=== PATIENT | male | born 1995 | race Caucasian/White ===

== ENCOUNTER 2021-03-19 14:02 | Emergency (ER) | payer MEDICAID, SELFPAY ==
[2021-03-19 14:03] VITALS: BP 190/101; PULSE 85; RESP 16; TEMP 36.2; O2SAT 97; BMI 46.0
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
[2021-03-19 15:45] VITALS: BP 148/84; PULSE 74; RESP 18
== END 2021-03-19 15:55 | disposition home or self-care (01) ==
PROVIDERS: Emergency Provider Emergency Medicine
DX: S06.0X1A Concussion with loss of consciousness of 30 minutes or less, initial encounter (principal); S40.012A Contusion of left shoulder, initial encounter; F17.200 Nicotine dependence, unspecified, uncomplicated; V89.0XXA Person injured in unspecified motor-vehicle accident, nontraffic, initial encounter
CPT/HCPCS: 70450; 73030; 99282

== ENCOUNTER 2024-03-26 15:03 | Emergency (ER) | payer MEDICAID, SELFPAY ==
[2024-03-26 15:05] VITALS: BP 147/104; PULSE 85; RESP 18; TEMP 35.8; O2SAT 97; BMI 47.1
--- NOTE | 2024-03-26 15:20 | CT_ITS ---
INDICATION: hernia EXAMINATION: CT ABDOMEN AND PELVIS WITHOUT CONTRAST - CT Abdomen And Pelvis W/O Contrast Injection TECHNIQUE: Helically acquired images were obtained of the abdomen and pelvis without oral or IV contrast. A radiation dose optimization technique was used for this scan. IV Contrast dosage and agent: None. Oral contrast: None. COMPARISON: 01/18/2016 FINDINGS: LOWER CHEST: Lung bases are clear. No cardiomegaly or pericardial effusion. LIVER: Diffuse low-attenuation consistent with steatosis. Enlargement to 21 cm. No concerning focal mass. GALLBLADDER AND BILIARY TREE: No calcified gallstones. No gallbladder distension or wall edema. No intra- or extrahepatic biliary ductal dilation. PANCREAS: No focal cystic or solid mass. SPLEEN: Splenomegaly. ADRENAL GLANDS: No nodules. KIDNEYS AND URETERS: No nephrolithiasis or hydronephrosis. PERITONEUM: No ascites or free air. BOWEL: Normal appendix. No stomach or bowel distension. No focal inflammatory change. LYMPH NODES: No enlarged mesenteric or retroperitoneal lymph nodes. VESSELS: Aorta is non-dilated. URINARY BLADDER: Unremarkable. REPRODUCTIVE ORGANS: No pelvic masses. ABDOMINAL WALL: Moderate umbilical hernia containing fat and small bowel loop without strangulation or proximal obstruction. BONES: Unremarkable. CT/Abdomen/Pelvis without Cont IMPRESSION: No acute findings in the abdomen or pelvis. Moderate umbilical hernia containing both fat and small bowel loop without obstruction. Hepatosplenomegaly. Electronically Signed: Artemio Duke MD at 16:38 EDT ,
--- NOTE | 2024-03-26 15:23 | EDS_ITS ---
HPI History of Present Illness Chief Complaint: Abd Pain Detail of Chief Complaint: Umbilical hernia Informant: patient Narrative Narrative: Patient presents secondary to pain to his umbilical hernia. He was diagnosed in August of last year. He is following with a surgeon at [facility], Dr. Culver, and is scheduled to have surgery on May 12. Patient states he was just seen in the office yesterday. This morning he pushed a table out of the way so his children can see the floor and noted pain to the area. He has not been able to get it to reduce since that time. He has been using ice packs to the area. [facility] Medical History (Updated 03/26/24 @ 16:[address] Lupis Serrano MD) Seasonal allergies Diabetes ADHD Home Medications ?Medication ?Instructions ?Recorded ?Last Taken ?Type albuterol sulfate 90 mcg/actuation 2 puff inhalation Q4H PRN PRN 04/21/17 Unknown Rx aerosol inhaler (Ventolin HFA) Shortness of breath/wheezing ##1 Methylphenidate Hcl [Concerta] 18 mg PO DAILY 10/07/17 Unknown History lurasidone 20 mg tablet (Latuda) 20 mg PO BID 10/07/17 Unknown History oxcarbazepine 150 mg tablet 150 mg PO BID 10/07/17 Unknown History promethazine 25 mg tablet 25 mg PO Q4H PRN PRN Nausea #20 10/07/17 Unknown Rx tabs naproxen 500 mg tablet 500 mg PO BID #14 tabs 03/19/21 Unknown Rx ondansetron 4 mg disintegrating 4 mg PO Q8H PRN PRN Nausea #10 tabs 03/19/21 Unknown Rx tablet Allergy/AdvReac Type Severity Reaction Status Date / Time acetaminophen (From Percocet) Allergy Hives Verified 03/26/24 15:05 amoxicillin Allergy Hives Verified 03/19/21 14:05 oxycodone Allergy Hives Verified 03/26/24 15:05 oxycodone HCl (From Percocet) Allergy Hives Verified 03/26/24 15:05 Penicillins Allergy Hives Verified 03/26/24 15:05 Surgical History History of left knee surgery Social History household members: none Smoking Status: Current every day smoker tobacco type: smokeless tobacco alcohol intake: current alcohol intake frequency: other substance use type: does not use ROS ROS ED Constitutional Constitutional ED: Denies chills or fever(s) Eyes Eyes: Denies change in vision ENT ENT ED: Denies rhinorrhea or sore throat Cardiovascular Cardiovascular: Denies chest pain or palpitations Respiratory/Chest Respiratory/Chest: Denies cough or dyspnea Gastrointestinal Gastrointestinal: Reports abdominal pain; Denies diarrhea, nausea or vomiting Musculoskeletal Musculoskeletal: Denies back pain or extremity pain Integumentary Denies Abrasions or rash Neurologic Neurologic: Denies headache(s) or weakness Psychiatric Psychiatric: Denies anxiety or depression Allergic/Immunologic Allergic/Immunologic ED: Denies lip swelling or urticaria EXAM Physical Exam Const Vital Signs: 03/26/24 15:05 03/26/24 16:01 Temperature 96.4 F L Temperature Source Temporal Pulse Rate 85 Respiratory Rate 18 Blood Pressure 147/104 H 125/80 H Blood Pressure Mean 118 93 Pulse Ox 97 93 Oxygen Delivery Method Room Air Positive well nourished and well developed General Appearance ED: well developed HEENT Reports moist mucous membranes Eyes EOMs intact bilaterally Chest Wall inspection of chest normal and palpation of chest normal Resp normal respiratory effort and clear to auscultation bilaterally Cardio regular rate and regular rhythm GI GI Narrative: Abdomen soft with a periumbilical hernia palpated just superior to the umbil icus. Area is painful and firm. Extremity normal to inspection Neuro oriented x3 and no sensory deficits noted Motor Exam: strength 5/5 throughout Psych mental status grossly normal Skin no rashes or lesions noted MDM MDM MDM Narrative Medical decision making narrative: IV line established. Patient given morphine and Zofran for pain. Labwork obta ined to evaluate for leukocytosis, anemia, and electrolyte derangement. CT flank obtained to evaluate the hernia. History & Record Review Discussion w/independent historian: Patient Lab Data Attestation: I reviewed the patient's lab results. Labs: Laboratory Results - last 24 hr 03/26/24 15:25 WBC 8.4 RBC 5.60 Hgb 15.1 Hct 46.1 MCV 82.3 MCH 27.0 MCHC 32.8 RDW Std Deviation 40.6 RDW Coeff of Janneth 13.7 Plt Count 265 MPV 9.7 Immature Gran % (Auto) 0.200 Neut % (Auto) 75.8 H Lymph % (Auto) 16.8 L [place] % (Auto) 4.5 Eos % (Auto) 2.3 Baso % (Auto) 0.4 Absolute Neuts (auto) 6.4 Absolute Lymphs (auto) 1.41 Nucleated RBC % 0 Sodium 139 Potassium 3.7 Chloride 104 Carbon Dioxide 26.0 Anion Gap 9 BUN 12 Creatinine 0.87 Estim Creat Clear Calc 192.48 Est GFR (MDRD) Af Amer 131 Est GFR (MDRD) Non-Af 108 BUN/Creatinine Ratio 13.7 Glucose 236 H Calcium 9.3 Radiography Diagnostic Testing: Clinical Impression(s) from Imaging Studies Abdomen/Pelvis CT 03/26/24 15:20 IMPRESSION: No acute findings in the abdomen or pelvis. Moderate umbilical hernia containing both fat and small bowel loop without obstruction. Hepatosplenomegaly. Electronically Signed: Artemio Duke MD at 16:38 EDT Reading Location ID and State: [facility] / [place] Tel , Service support , Treatment and Re-Evaluation :: After patient was given morphine and Zofran he was sent to CT. I was able to review his CT scan which did reveal hernia just superior to the umbilicus. I was able to go back and provide direct pressure and able to get the hernia to reduce. Patient's pain is significant improved at this time. Lab work is reviewed and indicates normal white count 8.4. 75% neutrophils noted. Chemistries are unremarkable. Glucose is 236. CT report returns with evidence of a moderate umbilical hernia containing both fat and small bowel loop without obstruction. On repeat exam patient continues to have no significant abdominal pain after reduction of the hernia. He will be given an abdominal binder. I will give him the local surgical information for follow-up if he wishes to be seen here, but otherwise will follow-up with his surgeon in [place] as previously planned. He was given return instructions. Discharge Plan Triage Chief Complaint: Abd Pain ED Provider: Lupis Serrano Dx/Rx/DC Orders Clinical Impression: Hernia, umbilical Instructions: ED Hernia (Adult) Prescriptions: No Action albuterol sulfate [Ventolin HFA] 1 INHALER inhaler 2 puff inhalation Q4H PRN PRN (Reason: Shortness of breath/wheezing) Qty: 1 3RF Rx Instructions: Use spacer with inhaler oxcarbazepine 150 MG tablet 150 mg PO BID lurasidone [Latuda] 20 MG tablet 20 mg PO BID Methylphenidate Hcl [Concerta] 18 MG Tab.Er.24 18 mg PO DAILY promethazine 25 MG tablet 25 mg PO Q4H PRN PRN (Reason: Nausea) Qty: 20 0RF ondansetron [ondansetron] 4 MG tablet 4 mg PO Q8H PRN PRN (Reason: Nausea) Qty: 10 0RF naproxen 500 MG tablet 500 mg PO BID Qty: 14 0RF Primary Care Provider: EVA SHAFER Referrals: [facility] [Other] Peter Lopez MD [[facility] Staff - Active Staff] - As Needed Activity Restrictions/Additional Instructions: Information for local surgery evaluation has been provided for you as needed. Please follow-up with your surgeon in [place] or reach out to the local surgeons for follow-up as needed. Print Language: Albanian Disposition Disposition: Home, Self Care
[2024-03-26] MEDS: Ondansetron 4 MG/2 ML Vial IV (15:30)
[2024-03-26] MEDS: 0.9% Normal Saline (1000mL) 1,000 ML 150 ML IV (15:30)
[2024-03-26] MEDS: Morphine 4 MG/ML Syringe IV (15:30)
[2024-03-26 15:43] LABS: Absolute Lymphocyte Count 1.41 X10^3/uL (0.83-4.51); Absolute Neutrophil Count 6.4 X10^3/uL (2.0-7.7); Basophil# 0.03 X10^3/uL; Basophil% 0.4 % (0-1); Eosinophil# 0.19 X10^3/uL; Eosinophils% 2.3 % (0-5); Hematocrit 46.1 % (40-54); Hemoglobin 15.1 g/dL (13.0-16.5); Lymphocyte # 1.41 X10^3/ul (0.83-4.51); Lymphocyte % 16.8 % (19-41); Mean Corp Hgb Conc 32.8 g/dL (32-36); Mean Corpuscular Volume 82.3 fL (80-94); Mean Platelet Vol. 9.7 fl (6.2-12.0); Monocyte# 0.38 X10^3/uL; Monocyte% 4.5 % (0-10); NRBC Flagged by Analyzer 0 % (0-5); Neutrophil # 6.35 X10^3/uL (2.7-7.7); Neutrophil % 75.8 % (47-70); Platelet Count 265 K/mm3 (150-450); RBC Distribution Width CV 13.7 % (11.6-14.6); RBC Distribution Width SD 40.6 fl (35.1-43.9); White Blood Count 8.4 K/mm3 (4.4-11.0)
[2024-03-26 15:57] LABS: Anion Gap 9 (5-15); BUN 12 mg/dL (7-18); BUN/Creat Ratio 13.7 RATIO (10-20); Calcium,Total 9.3 mg/dL (8.5-10.1); Chloride 104 mmol/L (98-107); Creatinine, Serum 0.87 mg/dL (0.70-1.30); EST Glomerular Filtration Rate 108 mL/min (>60); Est Glom Filt Rate - Afr Amer 131 mL/min (>60); Estimated Creatinine Clearance 192.48 ml/min; Glucose 236 mg/dL (74-106); Potassium 3.7 mmol/L (3.5-5.1); Sodium Level 139 mmol/L (136-145)
[2024-03-26 16:01] VITALS: BP 125/80; O2SAT 93
[2024-03-26 16:56] VITALS: BP 121/60; PULSE 90; RESP 18; TEMP 36.6; O2SAT 97
== END 2024-03-26 16:57 | disposition home or self-care (01) ==
PROVIDERS: Emergency Provider Emergency Medicine; Visit Provider Emergency Medicine
DX: K42.9 Umbilical hernia without obstruction or gangrene (principal); E11.9 Type 2 diabetes mellitus without complications; F17.220 Nicotine dependence, chewing tobacco, uncomplicated
CPT/HCPCS: 74176; 80048; 85025; 96374; 96375; 96376; 99282; J7030; A4216; J2405

== ENCOUNTER 2024-04-11 19:56 | Emergency (ER) | payer MEDICAID, SELFPAY ==
[2024-04-11 19:57] VITALS: BP 147/83; PULSE 119; RESP 18; TEMP 37.4; O2SAT 99; BMI 47.2
--- NOTE | 2024-04-11 20:13 | EX.ED.DYSGE1 ---
HPI History of Present Illness Chief Complaint: Cold Sx Informant: patient Narrative Narrative: 28-year-old male presenting to the emergency room for the evaluation of fever and cough. Patient states over the past several days he has had cough with some mild dyspnea, fever, nausea without vomiting, mild rhinorrhea and myalgias. Has been taking Tylenol and believes he is finally got his fever to break. Last dose of Tylenol was about 1 hour ago. He has a history of asthma uses albuterol as needed. He is also diabetic on metformin and Jardiance. He is scheduled for hernia surgery in the middle of April. He denies any rashes. Daughter sick with the same. [facility] Medical History Seasonal allergies Diabetes ADHD Home Medications ?Medication ?Instructions ?Recorded ?Last Taken ?Type albuterol sulfate 90 mcg/actuation 2 puff inhalation Q4H PRN PRN 04/21/17 Unknown Rx aerosol inhaler (Ventolin HFA) Shortness of breath/wheezing ##1 albuterol sulfate 90 mcg/actuation 2 puff inhalation Q4H PRN PRN 04/11/24 Unknown Rx aerosol inhaler (Ventolin HFA) Wheezing ##1 doxycycline monohydrate 100 mg 100 mg PO BID #20 CAPSULES 04/11/24 Unknown Rx capsule empagliflozin 10 mg tablet 10 mg PO DAILY 04/11/24 Unknown History (Jardiance) metformin 1,000 mg tablet 1,000 mg PO BID 04/11/24 Unknown History Allergy/AdvReac Type Severity Reaction Status Date / Time acetaminophen (From Percocet) Allergy Hives Verified 04/11/24 19:58 amoxicillin Allergy Hives Verified 04/11/24 19:58 oxycodone Allergy Hives Verified 04/11/24 19:58 oxycodone HCl (From Percocet) Allergy Hives Verified 04/11/24 19:58 Penicillins Allergy Hives Verified 04/11/24 19:58 Surgical History History of left knee surgery Social History household members: none Smoking Status: Current every day smoker tobacco type: smokeless tobacco alcohol intake: current alcohol intake frequency: other substance use type: does not use ROS ROS ED Constitutional Constitutional ED: Reports chills, fever(s) and sweats; Denies weight loss Eyes Eyes: Denies change in vision or diplopia ENT ENT ED: Reports rhinorrhea; Denies ear pain or sore throat Cardiovascular Cardiovascular: Denies chest pain, orthopnea, palpitations or racing heartbeat Respiratory/Chest Respiratory/Chest: Reports cough and dyspnea on exertion; Denies dyspnea or orthopnea Gastrointestinal Gastrointestinal: Reports nausea; Denies abdominal pain, diarrhea or vomiting Genitourinary Genitourinary ED: Denies dysuria, hematuria or urinary frequency Musculoskeletal Musculoskeletal: Reports myalgias; Denies arthralgias or neck pain Integumentary Denies abscess or rash Neurologic Neurologic: Denies headache(s) or weakness Psychiatric Psychiatric: Denies anxiety, depression, suicidal ideation or suicidal thoughts Endocrine Endocrinology: Denies polydipsia, polyphagia or polyuria Allergic/Immunologic Allergic/Immunologic ED: Denies mouth swelling, tongue swelling or urticaria EXAM Physical Exam Const Vital Signs: 04/11/24 19:57 04/11/24 20:04 Temperature 99.4 F H Temperature Source Oral Pulse Rate 119 H Respiratory Rate 18 Respiratory Effort Normal Non-Labored Blood Pressure 147/83 H Blood Pressure Mean 104 Pulse Ox 99 Oxygen Delivery Method Room Air Positive well nourished, well developed and obese General Appearance ED: well developed Nutritional Appearance: obese HEENT Reports normocephalic, head/scalp atraumatic and moist mucous membranes HEENT Narrative: Mild turbinate edema Eyes PERRL and EOMs intact bilaterally Neck no lymphadenopathy, supple and no JVD Resp normal respiratory effort and clear to auscultation bilaterally Resp Narrative: Dry cough Cardio regular rate, regular rhythm and no murmurs Rate: tachycardic GI normal to inspection, nondistended, normoactive bowel sounds and non-tender GI Narrative: Umbilical hernia does not palpate incarcerated Palpation: soft Back/Spine no CVA tenderness and normal ROM Extremity normal to inspection General Extremety ED: Negative for edema General Extremity: Negative for edema Neuro oriented x3 and CN's II-XII intact bilaterally Sensorium / Orientation: alert Motor Exam: strength 5/5 throughout Psych mental status grossly normal Mood & Affect: Negative for depressed or tearful Skin no rashes or lesions noted and no wounds MDM MDM MDM Narrative Medical decision making narrative: Differential diagnosis includes but not limited to viral syndrome pneumonia empyema bronchitis with bronchospasm sepsis Patient clinically appears well. He is not requiring supplemental oxygen. He is tolerating oral fluids. Lung sounds are clear and equal. COVID influenza and RSV swabs are negative. His daughter who is also ill about the same time he is also tested negative. My independent interpretation of the chest x-ray is possible patchy infiltrate right upper lobe. Radiology does feel this could be consistent with pneumonia. Given his symptomology history of asthma we will place him on doxycycline. Have him be aggressive with his albuterol and he will need a new inhaler. I will have him follow-up with primary care if not improving return if worsening or concerns History & Record Review Discussion w/independent historian: Patient Radiography Diagnostic Testing: Clinical Impression(s) from Imaging Studies Chest X-Ray 04/11/24 20:20 IMPRESSION: Right upper lobe infiltrate consistent with pneumonia. Electronically Signed: Baylee Stone MD at 20:48 EDT , Discharge Plan Triage Chief Complaint: Cold Sx ED Provider: Floyd Lynne Dx/Rx/DC Orders Clinical Impression: Acute febrile illness, Pneumonia Instructions: ED Pneumonia (Adult) Prescriptions: New doxycycline monohydrate 100 mg capsule 100 mg PO BID Qty: 20 0RF albuterol sulfate [Ventolin HFA] 90 mcg/actuation HFA aerosol inhaler 2 puff inhalation Q4H PRN PRN (Reason: Wheezing) Qty: 1 0RF No Action albuterol sulfate [Ventolin HFA] 1 INHALER inhaler 2 puff inhalation Q4H PRN PRN (Reason: Shortness of breath/wheezing) Qty: 1 3RF Rx Instructions: Use spacer with inhaler metformin 1,000 mg tablet 1,000 mg PO BID Jardiance 10 mg tablet 10 mg PO DAILY Primary Care Provider: EVA HENSON Referrals: EVA HENSON [Other] - 1 Week if not improving NOT,DEFINED [Non-Staff] - Print Language: Nepali Disposition Disposition: Home, Self Care
--- NOTE | 2024-04-11 20:20 | RAD_ITS ---
INDICATION: cough and fever EXAMINATION/TECHNIQUE: X-RAY - XR Chest 2 Views COMPARISON: 07/23/2013 FINDINGS: LINES/DEVICES: None. LUNGS: Patchy infiltrate right upper lobe. No consolidation. No pneumothorax. MEDIASTINUM: Unremarkable. CARDIAC SILHOUETTE: Not enlarged. BONES AND SOFT TISSUES: No acute abnormalities. RAD/Chest PA and Lateral IMPRESSION: Right upper lobe infiltrate consistent with pneumonia. Electronically Signed: Baylee Stone MD at 20:48 EDT ,
[2024-04-11] MEDS: Doxycycline 100 MG CAPSULE PO (21:20)
[2024-04-11 21:29] VITALS: BP 119/78; PULSE 95; RESP 18; TEMP 37.2; O2SAT 97
== END 2024-04-11 21:30 | disposition home or self-care (01) ==
PROVIDERS: Emergency Provider Emergency Medicine; Visit Provider Emergency Medicine
DX: J18.9 Pneumonia, unspecified organism (principal); E11.9 Type 2 diabetes mellitus without complications; Z79.84 Long term (current) use of oral hypoglycemic drugs; R50.9 Fever, unspecified; F17.220 Nicotine dependence, chewing tobacco, uncomplicated
CPT/HCPCS: 71046; 87631; 99282